=== PATIENT | male | born 1995 | race Two or more races ===

== ENCOUNTER 2024-10-02 09:01 | Emergency (ER) | payer MEDICAID, OTHER ==
[~2024-10-02] VITALS: Ht 165.1 cm; Wt 77.2 kg
[2024-10-02 09:35] VITALS: BP 117/76; PULSE 80; RESP 15; TEMP 98.2; O2SAT 96
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
== END 2024-10-02 11:51 | disposition home or self-care (01) ==
LOC: EDBD 09:01 → ER 09:01
DX: S42.351A Displaced comminuted fracture of shaft of humerus, right arm, initial encounter for closed fracture (principal); V89.2XXA Person injured in unspecified motor-vehicle accident, traffic, initial encounter; Y93.89 Activity, other specified; Y92.89 Other specified places as the place of occurrence of the external cause; Y99.8 Other external cause status
CPT/HCPCS: 73060